=== PATIENT | female | born 1935 | race Caucasian/White ===

== ENCOUNTER 2016-12-14 19:06 | Emergency (ER) | payer MEDICARE, BC ==
[2016-12-14 19:17] VITALS: BP 162/70
--- NOTE | 2016-12-14 19:23 | PCM.PREANE ---
Preanesthetic Assessment - Procedure Proposed Procedure: Dislocated right hip- closed reduction in ED - Anesthesia/Transfusion/Family Hx Anesthesia History: Prior Anesthesia Without Reaction Family History of Anesthesia Reaction: No Transfusion History: No Prior Transfusion(s) Additional History: osteoarthritis - Review of Systems General: No Symptoms Pulmonary: No Symptoms Cardiovascular: Other (HTN) Gastrointestinal: No Symptoms Neurological: No Symptoms Other: Reports: Diabetes (GS 171 at 1510), Thyroid Problems (hypothyroidism) - Physical Assessment NPO Status Date: 12/14/16 NPO Status Time: 17:00 (1130 food, 1700 Cranberry juice) O2 Sat by Pulse Oximetry: 100 Respiratory Rate: 20 Vital Signs: Last Vital Signs Temp 36.6 C 12/14/16 19:11 Pulse 72 12/14/16 19:11 Resp 20 12/14/16 19:11 BP 162/70 H 12/14/16 19:11 Pulse Ox 100 12/14/16 19:11 Height: 1.73 m Weight: 90.718 kg ASA Class: 2 Mental Status: Alert & Oriented x3 Airway Class: Mallampati = 3 Dentition: Reports: Dentures (upper ) Thyro-Mental Finger Breadths: 3 Mouth Opening Finger Breadths: 3 ROM/Head Extension: Full Lungs: Clear to Auscultation, Normal Respiratory Effort Cardiovascular: Regular Rate, Regular Rhythm - Allergies Allergies/Adverse Reactions: Allergies Allergy/AdvReac Type Severity Reaction Status Date / Time No Known Allergies Allergy Verified 12/14/16 19:17 - Blood Blood Available: No Product(s) Available: None - Anesthesia Plan Pre-Op Medication Ordered: None - Acknowledgements Anesthesia Type Planned: MAC Pt an Appropriate Candidate for the Planned Anesthesia: Yes Alternatives and Risks of Anesthesia Discussed w Pt/Guardian: Yes Pt/Guardian Understands and Agrees with Anesthesia Plan: Yes
[2016-12-14] MEDS ORDERED: Metoclopramide 10 MG/2 ML SDV IVPUSH ONE (19:50)
[2016-12-14] MEDS ORDERED: Midazolam 1 MG/ML 2 ML SDV ONE (20:02)
[2016-12-14] MEDS ORDERED: Ketamine 500 mg/10 ML MDV ONE (20:03)
[2016-12-14] MEDS ORDERED: HYDROmorphone 0.5 MG/0.5 ML Syringe IVPUSH ONE (20:36)
--- NOTE | 2016-12-14 20:43 | EDM.PDOC ---
ED HPI GENERAL MEDICAL PROBLEM - General Chief Complaint: Lower Extremity Injury/Pain Stated Complaint: [facility] Time Seen by Provider: 12/14/16 19:17 Source of Information: Reports: Patient, EMS, Family, Provider History Limitations: Reports: No Limitations - History of Present Illness INITIAL COMMENTS - FREE TEXT/NARRATIVE: The patient was at a store in [place] and she tripped and fell on a small rise in the floor. She landed on her knees and she dislocated her hip. She did not hit her head and she has no neck pain. She was seen at the ER in [place] and they did an x-ray and saw her hip was dislocated and they attempted to reduce it. They were unsuccessful. They sent her here for further care. She has a history of diabetes type II, hypothyroidism, and high blood pressure. When she arrived, she was just complaining of right hip pain. 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 (see below) Other Treatments FOOD SERVICE DRIVER: fentanyl Right Hip Pain Score (Numeric/FACES): 8 - Related Data Allergies Allergy/AdvReac Type Severity Reaction Status Date / Time No Known Allergies Allergy Verified 12/14/16 19:17 Past Medical History Cardiovascular History: Reports: High Cholesterol, Hypertension Endocrine/Metabolic History: Reports: Diabetes, Type II - Past Surgical History GI Surgical History: Reports: Cholecystectomy Female Surgical History: Reports: Hysterectomy Social & Family History - Family History Family Medical History: Noncontributory - Tobacco Use Smoking Status *Q: Never Smoker - Caffeine Use Caffeine Use: Reports: None - Recreational Drug Use Recreational Drug Use: No Review of Systems - Review of Systems Review Of Systems: See Below Constitutional: Reports: No Symptoms Eyes: Reports: No Symptoms Ears: Reports: No Symptoms Nose: Reports: No Symptoms Mouth/Throat: Reports: No Symptoms Respiratory: Reports: No Symptoms Cardiovascular: Reports: No Symptoms GI/Abdominal: Reports: No Symptoms Genitourinary: Reports: No Symptoms Musculoskeletal: Reports: Other (Right hip pain) ED EXAM, GENERAL - Physical Exam Exam: See Below Exam Limited By: No Limitations General Appearance: Alert, No Apparent Distress Ears: Normal External Exam Nose: Normal Inspection Head: Atraumatic, Normocephalic Neck: Normal Inspection Respiratory/Chest: No Respiratory Distress, Lungs Clear, Normal Breath Sounds Cardiovascular: Regular Rate, Rhythm, No Edema, No Murmur GI/Abdominal: Soft, Non-Tender, No Organomegaly, No Mass Extremities: Other (Pain upon palpation to the right hip. Her leg is shortend and externaly rotated. She has good sensation and pulses distally. She has an abrasion to her knee. She has an abrasion to her right elbow.) Course - Vital Signs Last Recorded V/S: Last Vital Signs Temp 97.9 F 12/14/16 19:11 Pulse 72 12/14/16 19:11 Resp 20 12/14/16 19:36 BP 162/70 H 12/14/16 19:11 Pulse Ox 100 12/14/16 19:36 - Orders/Labs/Meds Orders: Active Orders 24 hr Category Date Time Status Truong Catheter Insertion [Insert Urinary Catheter] [OM. Care 12/14/16 20:30 Ordered PC] Q24H Urinary Catheter Assessment [RC] ASDIRECTED Care 12/14/16 20:30 Active Hip Min 2V or 3V w Pelvis Rt [CR] Stat Exams 12/14/16 19:17 Taken Meds: Medications Discontinued Medications Generic Name Dose Route Start Last Admin Trade Name Joyce PRN Reason Stop Dose Admin Hydromorphone HCl 0.5 mg 12/14/16 20:36 Dilaudid IVPUSH 12/14/16 20:37 ONETIME ONE Ketamine HCl Confirm 12/14/16 20:03 Ketalar Administered 12/14/16 20:04 Dose 500 mg .ROUTE .STK-MED ONE Metoclopramide HCl 10 mg 12/14/16 19:50 12/14/16 20:30 Reglan IVPUSH 12/14/16 19:51 10 mg ONETIME ONE Administration Midazolam HCl Confirm 12/14/16 20:02 Versed 1 Mg/Ml Administered 12/14/16 20:03 Dose 2 mg .ROUTE .STK-MED ONE - Re-Assessments/Exams Free Text/Narrative Re-Assessment/Exam: 12/14/16 20:43 They did not send the x-rays from [place] so I did x-rays here. She had a fracture dislocation of the right hip. There is 1/3 of the femur broken off and still in the acetabulum. The hip is dislocated superior to the acetabulum. I called Dr Gaspar and he felt she would be better served in [place]. He does not have good hospitalist back up here. I called Dr Bhagat and he would take her but he wanted to talk to Dr Gaspar. They both talked and Dr Bhagat accepted the patient. I gave her some dilaudid 0.5mg IV for pain and she had to urinate so we put a truong cath in. Departure - Departure Time of Disposition: 20:50 Disposition: DC/Tfer to [facility] 02 Condition: Good Clinical Impression: Fall Qualifiers: Encounter type: initial encounter Qualified Code(s): W19.XXXA - Unspecified fall, initial encounter Fracture dislocation of right hip joint Qualifiers: Encounter type: initial encounter Fracture type: closed Qualified Code(s): S72.001A - Fracture of unspecified part of neck of right femur, initial encounter for closed fracture Abrasion of right elbow Qualifiers: Encounter type: initial encounter Qualified Code(s): S50.311A - Abrasion of right elbow, initial encounter Abrasion of right knee Qualifiers: Encounter type: initial encounter Qualified Code(s): S80.211A - Abrasion, right knee, initial encounter - Discharge Information Forms: ED Department Discharge - My Orders Last 24 Hours: My Active Orders 12/14/16 19:17 Hip Min 2V or 3V w Pelvis Rt [CR] Stat 12/14/16 20:30 Truong Catheter Insertion [Insert Urinary Catheter] [OM.PC] Q24H Urinary Catheter Assessment [RC] ASDIRECTED - Assessment/Plan Last 24 Hours: My Active Orders 12/14/16 19:17 Hip Min 2V or 3V w Pelvis Rt [CR] Stat 12/14/16 20:30 Truong Catheter Insertion [Insert Urinary Catheter] [OM.PC] Q24H Urinary Catheter Assessment [RC] ASDIRECTED
--- NOTE | 2016-12-15 07:01 | CR ---
Pelvis and right hip: AP view of the pelvis was obtained as well as AP and lateral views of the right hip. Dislocated right hip is seen. Small bony density is seen superior to the femoral head which is felt compatible with small chip fracture. No additional abnormality is seen other than slight degenerative change within the spine. Impression: 1. Dislocated right hip. 2. Probable small chip fracture as noted above. Diagnostic code #3
== END 2016-12-14 21:30 ==
LOC: JD.ED 19:06
DX: S72.001A Fracture of unspecified part of neck of right femur, initial encounter for closed fracture (principal); S50.311A Abrasion of right elbow, initial encounter; S80.211A Abrasion, right knee, initial encounter; I10 Essential (primary) hypertension; E78.00 Pure hypercholesterolemia, unspecified; E11.9 Type 2 diabetes mellitus without complications; Z90.49 Acquired absence of other specified parts of digestive tract; Z90.710 Acquired absence of both cervix and uterus; W01.0XXA Fall on same level from slipping, tripping and stumbling without subsequent striking against object, initial encounter; Y92.512 Supermarket, store or market as the place of occurrence of the external cause
CPT/HCPCS: 51702; 73502; 81001; 82962; 96374; 96375; 99285; J1170; J2765; 99284; J2250

== ENCOUNTER 2020-04-30 10:32 | Day surgery (SDC) | payer MEDICARE, BC ==
[~2020-04-30 10:32] MED LIST: Lactated Ringers 1,000 ML IV SCH; Lidocaine 1%/Sod Bicarbonate in NS 8.4% 1 ML Syringe IDERM PRN; Sodium Chloride 0.9% 10 ML Syringe FLUSH PRN
[2020-04-30] MEDS ORDERED: Losartan 25 MG Tab PO SCH (11:30)
--- NOTE | 2020-04-30 11:31 | PCM.PREANE ---
Preanesthetic Assessment - Procedure Proposed Procedure: EGD, colonoscopy - Anesthesia/Transfusion/Family Hx Anesthesia History: Prior Anesthesia Without Reaction Family History of Anesthesia Reaction: No Transfusion History: Prior Transfusion Without Reaction Intubation History: Unknown - Review of Systems General: No Symptoms Pulmonary: No Symptoms Cardiovascular: No Symptoms, Other Gastrointestinal: No Symptoms Neurological: No Symptoms Other: Reports: None, Thyroid Problems, Depression - Physical Assessment NPO Status Date: 04/30/20 NPO Status Time: 20:00 Vital Signs: Last Vital Signs Temp 36.6 C 04/30/20 10:35 Pulse 68 04/30/20 10:35 Resp 16 04/30/20 10:35 BP 214/68 H 04/30/20 10:35 Pulse Ox 96 04/30/20 10:35 BPat 1128 181/44 Height: 1.7 m Weight: 81.193 kg ASA Class: 3 Mental Status: Alert & Oriented x3 Thyro-Mental Finger Breadths: 3 Mouth Opening Finger Breadths: 4 ROM/Head Extension: Full Lungs: Clear to Auscultation, Normal Respiratory Effort Cardiovascular: Regular Rate, Regular Rhythm - Lab Values: awaiting labs - Allergies Allergies/Adverse Reactions: Allergies Allergy/AdvReac Type Severity Reaction Status Date / Time No Known Allergies Allergy Verified 04/29/20 11:53 - Blood Blood Available: No - Anesthesia Plan Pre-Op Medication Ordered: None - Acknowledgements Anesthesia Type Planned: MAC Pt an Appropriate Candidate for the Planned Anesthesia: Yes Alternatives and Risks of Anesthesia Discussed w Pt/Guardian: Yes Pt/Guardian Understands and Agrees with Anesthesia Plan: Yes PreAnesthesia Questionnaire HEENT History: Reports: Hard of Hearing Cardiovascular History: Reports: High Cholesterol, Hypertension, Other (See Below) Other Cardiovascular History: bradycardia, irregular heart beat, pulse irregularity, edema Respiratory History: Reports: None Gastrointestinal History: Reports: Other (See Below) Other Gastrointestinal History: dyspepsia Genitourinary History: Reports: Other (See Below) Other Genitourinary History: proteinuria 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: Musculoskeletal History: Reports: Arthritis, Osteoarthritis Neurological History: Reports: Neuropathy, Diabetic Psychiatric History: Reports: Depression Endocrine/Metabolic History: Reports: Diabetes, Type II, Hypothyroidism Hematologic History: Reports: Anemia Immunologic History: Reports: None Oncologic (Cancer) History: Reports: None Dermatologic History: Reports: Other (See Below) Other Dermatologic History: corn, callous, onchomycosis, skin ulcer to left toe - Infectious Disease History Infectious Disease History: Reports: Novel Coronavirus - Past Surgical History Head Surgeries/Procedures: Reports: None HEENT Surgical History: Reports: None Cardiovascular Surgical History: Reports: None Respiratory Surgical History: Reports: None GI Surgical History: Reports: Cholecystectomy Female Surgical History: Reports: Hysterectomy Male Surgical History: Reports: None Endocrine Surgical History: Reports: None Neurological Surgical History: Reports: None Musculoskeletal Surgical History: Reports: Other (See Below) Other Musculoskeletal Surgeries/Procedures:: right hip fracture with repair, left ankle fracture with repair Oncologic Surgical History: Reports: None - SUBSTANCE USE Tobacco Use Status *Q: Never Tobacco User Recreational Drug Use History: No - HOME MEDS Home Medications: Home Meds Acetaminophen [Tylenol Extra Strength] 500 mg PO Q4H PRN 04/29/20 [History] Calcium Carb/Vitamin D3/Vit K1 [Calcium + D Soft Chewable Tab] 1 tab PO DAILY 04/29/20 [History] Cholecalciferol (Vitamin D3) [Vitamin D3] 2,000 unit PO DAILY 04/29/20 [History] Cinnamon Bark [Cinnamon] 500 mg PO BID 04/29/20 [History] Fish Oil/Popejoy-3 Fatty Acids [Fish Oil 1,000 MG] 1 gm PO DAILY 04/29/20 [History] Glimepiride [Amaryl] 1 mg PO DAILY 04/29/20 [History] Levothyroxine Sodium [Levothyroxine] 150 mcg PO DAILY 04/29/20 [History] Losartan [Cozaar] 50 mg PO DAILY 04/29/20 [History] Meloxicam [Mobic] 15 mg PO DAILY 04/29/20 [History] Multivitamin 1 tab PO DAILY 04/29/20 [History] Omeprazole 40 mg PO DAILY 04/29/20 [History] Sertraline [Zoloft] 25 mg PO DAILY 04/29/20 [History] Vitamin B Complex 1 cap PO DAILY 04/29/20 [History] hydroCHLOROthiazide [Hydrochlorothiazide] 12.5 mg PO DAILY 04/29/20 [History] metFORMIN [Glucophage] 500 mg PO BID 04/29/20 [History] - CURRENT (IN HOUSE) MEDS Current Meds: Current Medications Lactated Ringer's (Ringers, Lactated) 1,000 mls @ 125 mls/hr IV ASDIRECTED NANCY Stop: 04/30/20 23:00 Last Admin: 04/30/20 11:05 Dose: 125 mls/hr Documented by: Lidocaine/Sodium Bicarbonate (Buffered Lidocaine 1% In Ns 8.4%) 0.25 ml IDERM ONETIME PRN PRN Reason: Prior to IV Start Stop: 04/30/20 18:00 Last Admin: 04/30/20 11:05 Dose: 0.25 ml Documented by: Losartan Potassium (Cozaar) 50 mg PO DAILY NANCY Sodium Chloride (Saline Flush) 10 ml FLUSH ASDIRECTED PRN PRN Reason: Keep Vein Open Stop: 04/30/20 18:00
[2020-04-30] MEDS ORDERED: Propofol 200 MG/20 ML SDV ONE ×2 (12:03→13:57)
[2020-04-30] MEDS ORDERED: Lidocaine 1% 4 ML ONE (12:04)
--- NOTE | 2020-04-30 13:07 | PCM.OPNOTE ---
- General Post-Op/Procedure Note Date of Surgery/Procedure: 04/30/20 Operative Procedure(s): Colonoscopy Findings: 1. Diverticulosis 2. Cecal polyp x2 3. Hepatic flexure polyp 4. Transverse colon polypx2 5. Splenic flexure polyp 6. Rectal polyp Pre Op Diagnosis: screening for colon cancer Post-Op Diagnosis: same Anesthesia Technique: MAC Primary Surgeon: Salma Allan Anesthesia Provider: Yael Erickson Pathology: 1. Cecal polyp 2. Hepatic flexure polyp 3. Transverse colon polypx2 4. Splenic flexure polyp 5. Rectal polyp Fluid Replacement, Intraop: 1,000 Output, Urine Amount: 0 EBL in mLs: 0 Complications: none apparent Condition: Good
--- NOTE | 2020-04-30 13:09 | PCM.PRNOTE ---
- Free Text/Narrative Note: Operative Report Date of Procedure: April 30, 2020 Pre Op Diagnosis: Anemia Post-Op Diagnosis: Same Operative Procedures: 1. EGD with biopsy 2. Colonoscopy to the cecum Primary Surgeon: Salma Allan MD Anesthesia Provider: Yael Erickson CRNA Anesthesia Technique: MAC IV Fluid Replacement, Intraop: 1000cc crystalloid Output, Urine Amount: 0cc EBL in mLs: 0cc Findings: 1. Irregular GE junction 2. Hiatal hernia 3. Gastritis 4. Gastric ulcer in antrum 5. Antral polyp 6. Submucosal mass in duodenum 7. Cecal polyp 8. Transverse colon polyp Specimens: 1. GE junction biopsies 2. Gastric antrum biopsies 3. Gastric ulcer in antrum biopsies 4. Antral polyp 5. Submucosal mass in duodenum biopsies 6. Cecal polyp 7. Transverse colon polyp Drain/Tubes: None Indication: The patient is an 84-year-old lady who presented to the clinic with findings of anemia and positive FIT testing. The patient reported symptoms of epigastric abdominal pain that had improved with initiation of PPI anti-acid therapy. However, despite initiation of acid suppression, the patient developed severe anemia that required transfusion of 2 blood units. The patient was consented for a diagnostic EGD and colonoscopy. Risks of bleeding, and perforation were discussed, and the patient agreed to the risks and wished to proceed. Description of the procedure: The patient was taken back to the endoscopy suite, and placed in the left lateral decubitus position. A bite block was placed. The patient was sedated w ith MAC anesthesia. The Olympus video endoscope was inserted into the oropharynx and guided under direct vision into the esophagus, stomach, and duodenum. The duodenal bulb and second portion of the duodenum were unremarkable. The gastric antrum was inspected and cold biopsy forceps were used to take tissue samples for H. pylori. There was erythema in the prepyloric gastric tissue with findings of a healing gastric ulcer. Biopsies were taken of the gastric ulcer tissue with a cold biopsy forceps for histology. A 3 mm polyp was noted in the antrum and removed with a cold biopsy forceps. There were findings of erythema in the gastric antrum. The scope was withdrawn to the stomach and retroflexed. There was no increased fluid, food or secretions in the upper gastrointestinal tract. The mucosa in the body of the stomach did appear edematous but was very pale. No erosions or ulcers were noted. The scope was withdrawn to the esophagus. A this point we noted a hiatal hernia. The GE junction was noted to be irregular and was biopsied in 4 quadrants using a cold biopsy forceps. The endoscope was then withdrawn Next, anorectal examination was performed. No lesions, masses or hemorrhoids were noted externally or on palpation. The scope was placed into the rectum and advanced to cecum. Upon reaching the cecum, and the patients cecum was entered. There was mild tortuosity of the colon. The ileocecal valve was well visualized and the appendiceal orifice identified. At this point, the scope was slowly withdrawn, paying attention to the mucosa. The patient had adequate bowel prep, 85% of the mucosa was visible after washing and suctioning but visibility was most poor in the ascending colon. A 2mm cecal polyp was noted and removed using a cold biopsy forceps. A 3 mm flat transverse colon polyp was removed using cold biopsy forceps. In the rectum, scope was retroflexed and some hemorrhoidal tissue was noted. The scope was placed back in the lumen and excess air was aspirated. The scope was removed. The patient tolerated the procedure very well. Complications: None apparent Condition: The patient was transported to PACU in stable condition. Salma Allan MD General Surgery
[2020-04-30] MEDS ORDERED: Labetalol 100 MG/20 ML MDV ONE (13:27)
[2020-04-30] MEDS ORDERED: Lactated Ringers 1,000 ML ONE (13:57)
--- NOTE | 2020-04-30 14:21 | PCM.OPNOTE ---
- General Post-Op/Procedure Note Date of Surgery/Procedure: 04/30/20 Operative Procedure(s): EGD and colonoscopy Findings: 1. Irregular GE jucntion 2. Hiatal hernia 3. Gastritis 4. Gastric ulcer in antrum 5. Antral polyp 6. Submucosal mass in duodenum 7. Cecal polyp 8. Transverse colon polyp Pre Op Diagnosis: Anemia Post-Op Diagnosis: same Anesthesia Technique: MAC Primary Surgeon: Salma Allan Anesthesia Provider: Yael Erickson Occ Therapist: Bhaskar Tenorio Pathology: 1. GE junction biopsies 2. Gastric antrum biopsies 3. Gastric ulcer in antrum biopsies 4. Antral polyp 5. Submucosal mass in duodenum biopsies 6. Cecal polyp 7. Transverse colon polyp Fluid Replacement, Intraop: 1,000 Output, Urine Amount: 0 EBL in mLs: 0 Complications: none apparent Condition: Good Free Text/Narrative:: Intake & Output 04/29/20 04/30/20 04/30/20 22:59 06:59 14:59 Intake Total 1000 Output Total 0 Balance 1000
--- NOTE | 2020-04-30 14:28 | PCM48HPAN ---
Post Anesthesia Note - EVALUATION WITHIN 48HRS OF ANESTHETIC Vital Signs in Normal Range: Yes Patient Participated in Evaluation: Yes Respiratory Function Stable: Yes Airway Patent: Yes Cardiovascular Function Stable: Yes Hydration Status Stable: Yes Pain Control Satisfactory: Yes Nausea and Vomiting Control Satisfactory: Yes Mental Status Recovered: Yes Vital Signs: Last Vital Signs Temp 97.8 F 04/30/20 10:35 Pulse 68 04/30/20 10:35 Resp 16 04/30/20 10:35 BP 181/57 H 04/30/20 11:38 Pulse Ox 96 04/30/20 10:35 1421 97.4 16 70 92% 166/71
[2020-04-30 15:25] VITALS: BP 178/68; PULSE 75
== END 2020-04-30 15:28 | disposition home or self-care (01) ==
LOC: JD.SDS 10:32
PROVIDERS: ATTEND Surgery
DX: D12.0 Benign neoplasm of cecum (principal); D64.9 Anemia, unspecified; U07.1 COVID-19; K29.50 Unspecified chronic gastritis without bleeding; K44.9 Diaphragmatic hernia without obstruction or gangrene; K31.89 Other diseases of stomach and duodenum; K25.9 Gastric ulcer, unspecified as acute or chronic, without hemorrhage or perforation; E03.9 Hypothyroidism, unspecified; I10 Essential (primary) hypertension; F32.9 Major depressive disorder, single episode, unspecified; E11.40 Type 2 diabetes mellitus with diabetic neuropathy, unspecified; Z98.890 Other specified postprocedural states; Z79.899 Other long term (current) drug therapy; Z79.84 Long term (current) use of oral hypoglycemic drugs
CPT/HCPCS: 36415; 43239; 45380; 85025; 93005; A9270; J2001; J2704; J3490; J7120; 00813

== ENCOUNTER 2020-09-03 07:09 | Day surgery (SDC) | payer MEDICARE, BC ==
[2020-09-03] MEDS ORDERED: fentaNYL 100 MCG/2 ML SDV ONE (07:13)
[2020-09-03] MEDS ORDERED: Lidocaine 1% 4 ML ONE (07:13)
[2020-09-03] MEDS ORDERED: Propofol 200 MG/20 ML SDV ONE (07:13)
--- NOTE | 2020-09-03 07:38 | PCM.PREANE ---
Preanesthetic Assessment - Procedure Proposed Procedure: EGD - Anesthesia/Transfusion/Family Hx Anesthesia History: Prior Anesthesia Without Reaction Family History of Anesthesia Reaction: No Transfusion History: Prior Transfusion Without Reaction Intubation History: Unknown - Review of Systems General: No Symptoms Pulmonary: No Symptoms Cardiovascular: No Symptoms (HTN, history of irregular hr), Palpitations (anxiety), Dyspnea on Exertion Gastrointestinal: No Symptoms (GERD-improved/history of gastric ulcer) Neurological: Numbness (neuropathy-primarily in the feet and also in hands) Other: Reports: Easy Bruising, Diabetes (BS =92 @ 0530), Thyroid Problems (hypothyroid), Depression, Anxiety - Physical Assessment NPO Status Date: 09/02/20 NPO Status Time: 22:30 Vital Signs: HR: 67 Sat: 94% Temp: 97.6 B/P: 185/57 Resp: 16 Height: 1.73 m Weight: 85.275 kg ASA Class: 3 Mental Status: Alert & Oriented x3 Airway Class: Mallampati = 2 Dentition: Reports: Normal Dentition, Dentures (upper), Caries Thyro-Mental Finger Breadths: 3 Mouth Opening Finger Breadths: 3 ROM/Head Extension: Full Lungs: Clear to Auscultation, Normal Respiratory Effort Cardiovascular: Regular Rate, Regular Rhythm, No Murmurs - Imaging/EKG Impressions: EKG: SR rate = 75, abnormal R wave progression. - Allergies Allergies/Adverse Reactions: Allergies Allergy/AdvReac Type Severity Reaction Status Date / Time No Known Allergies Allergy Verified 09/02/20 15:34 - Anesthesia Plan Pre-Op Medication Ordered: None - Acknowledgements Anesthesia Type Planned: MAC Pt an Appropriate Candidate for the Planned Anesthesia: Yes Alternatives and Risks of Anesthesia Discussed w Pt/Guardian: Yes Pt/Guardian Understands and Agrees with Anesthesia Plan: Yes PreAnesthesia Questionnaire HEENT History: Reports: Hard of Hearing, Impaired Vision Other HEENT History: wears glasses, has upper denture Cardiovascular History: Reports: High Cholesterol, Hypertension, Other (See Below) Other Cardiovascular History: bradycardia, irregular heart beat, pulse irregularity, edema Respiratory History: Reports: None Gastrointestinal History: Reports: Other (See Below) Other Gastrointestinal History: dyspepsia Genitourinary History: Reports: Other (See Below) Other Genitourinary History: proteinuria 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: Musculoskeletal History: Reports: Arthritis, Osteoarthritis Neurological History: Reports: Neuropathy, Diabetic Psychiatric History: Reports: Depression Endocrine/Metabolic History: Reports: Diabetes, Type II, Hypothyroidism Hematologic History: Reports: Anemia Immunologic History: Reports: None Oncologic (Cancer) History: Reports: None Dermatologic History: Reports: Other (See Below) Other Dermatologic History: corn, callous, onchomycosis, skin ulcer to left toe - Infectious Disease History Infectious Disease History: Reports: None - Past Surgical History Head Surgeries/Procedures: Reports: None HEENT Surgical History: Reports: None Cardiovascular Surgical History: Reports: None Respiratory Surgical History: Reports: None GI Surgical History: Reports: Cholecystectomy, Colonoscopy, EGD Female Surgical History: Reports: Hysterectomy Male Surgical History: Reports: None Endocrine Surgical History: Reports: None Neurological Surgical History: Reports: None Musculoskeletal Surgical History: Reports: Other (See Below) Other Musculoskeletal Surgeries/Procedures:: right hip fracture with repair, le ft ankle fracture with repair Oncologic Surgical History: Reports: None Dermatological Surgical History: Reports: None - SUBSTANCE USE Tobacco Use Status *Q: Never Tobacco User Recreational Drug Use History: No - HOME MEDS Home Medications: Home Meds Acetaminophen [Tylenol Extra Strength] 500 mg PO Q4H PRN 04/29/20 [History] Calcium Carb/Vitamin D3/Vit K1 [Calcium + D Soft Chewable Tab] 1 tab PO DAILY 04/29/20 [History] Cholecalciferol (Vitamin D3) [Vitamin D3] 2,000 unit PO DAILY 04/29/20 [History] Cinnamon Bark [Cinnamon] 500 mg PO BID 04/29/20 [History] Fish Oil/[place]-3 Fatty Acids [Fish Oil 1,000 MG] 1 gm PO BID 04/29/20 [History] Glimepiride [Amaryl] 1 mg PO DAILY 04/29/20 [History] Losartan [Cozaar] 50 mg PO DAILY 04/29/20 [History] Multivitamin 1 tab PO DAILY 04/29/20 [History] Omeprazole 40 mg PO DAILY 04/29/20 [History] Sertraline [Zoloft] 25 mg PO DAILY 04/29/20 [History] Vitamin B Complex 1 cap PO DAILY 04/29/20 [History] hydroCHLOROthiazide [Hydrochlorothiazide] 12.5 mg PO DAILY 04/29/20 [History] metFORMIN [Glucophage] 500 mg PO BID 04/29/20 [History] Levothyroxine Sodium [Levothyroxine] 150 mcg PO DAILY 09/02/20 [History] - CURRENT (IN HOUSE) MEDS Current Meds: Current Medications Lactated Ringer's (Ringers, Lactated) 1,000 mls @ 125 mls/hr IV ASDIRECTED NANCY Stop: 09/03/20 23:00 Lidocaine/Sodium Bicarbonate (Lidocaine 1%/Sod Bicarbonate In Ns 8.4% 1 Ml Syringe) 0.25 ml IDERM ONETIME PRN PRN Reason: Prior to IV Start Stop: 09/03/20 18:00 Sodium Chloride (Sodium Chloride 0.9% 10 Ml Syringe) 10 ml FLUSH ASDIRECTED PRN PRN Reason: Keep Vein Open Stop: 09/03/20 18:00 Discontinued Medications Fentanyl (Fentanyl 100 Mcg/2 Ml Sdv) Confirm Administered Dose 100 mcg .ROUTE .STK-MED ONE Stop: 09/03/20 07:14 Lidocaine HCl (Xylocaine-Mpf 1%) Confirm Administered Dose 4 mls @ as directed .ROUTE .STK-MED ONE Stop: 09/03/20 07:14 Propofol (Propofol 200 Mg/20 Ml Sdv) Confirm Administered Dose 200 mg .ROUTE .STK-MED ONE Stop: 09/03/20 07:14
--- NOTE | 2020-09-03 08:42 | PCM.OPNOTE ---
- General Post-Op/Procedure Note Date of Surgery/Procedure: 09/03/20 Findings: 1. Bile reflux 2. Healed gastric ulcer 3. Gastritis 4. Irregular GE junction Pre Op Diagnosis: History of gastic ulcer Post-Op Diagnosis: same Anesthesia Technique: ELISHA Primary Surgeon: Salma Allan Anesthesia Provider: Helga Pride Pathology: 1. Gastric antrum biopsies 2. Z-line biopsies Fluid Replacement, Intraop: 500 Output, Urine Amount: 0 EBL in mLs: 0 Complications: none apparent Condition: Good
--- NOTE | 2020-09-03 08:47 | PCM.PRNOTE ---
- Free Text/Narrative Note: Operative Report Date of procedure: September 03, 2020 Preoperative diagnosis: History of gastric ulcer Postoperative diagnosis: same Surgeon: Salma Allan M.D. Procedure: EGD Anesthesia: MAC Pottery Decoration Designer: Helga Pride CRNA IV fluids: 500mL Estimated blood loss: 0 mL Findings: 1. Bile reflux 2. Healed gastric ulcer 3. Gastritis 4. Irregular GE junction Specimens: 1. Gastric antrum biopsies 2. Z-line biopsies Indication: The patient is an 85 -year-old lady who presented with history of melena and anemia, and previously had EGD. The patient was consented for an EGD for evaluation fo gastric ulcer healing. Risk of perforation was discussed. The patient's consent was obtained Description of the procedure: The patient was taken to the endoscopy suite and placed on hemodynamic monitoring. The nurse clarifying plant operator induced MAC anesthesia. A bite block was placed. The patient was positioned in the left lateral decubitus position. A timeout was performed. The endoscope was gently placed into the mouth to the back of the pharynx and introduced into the esophagus. The scope was gently advanced under direct visualization down to the level of the lower esophageal sphincter. The stomach was then entered. Normal rugal folds were noted. The scope was advanced into the antrum. We noted erythema consistent with gastritis and scarring in the antrum consistent with a healed ulcer. The pylorus was then entered and the first and second portion of the duodenum was inspected. There were no ulcerations in the duodenum. The scope was withdrawn into the antrum and biopsies were taken in the antrum and of the scar tissue using a cold biopsy forceps. The scope was then retroflexed in the cardia and fundus were investigated. There was possible hiatal hernia noted of the fundus. No other abnormalities were noted. The scope was then withdrawn while inspecting the esophagus. The Z-line was irregular and biopsied with a cold biopsy forceps in four quadrants. There was no additional findings of esophagitis. The procedure was terminated. the patient tolerated the procedure well without any evidence of complications. Salma Allan MD General Surgery
--- NOTE | 2020-09-03 08:57 | PCM48HPAN ---
Post Anesthesia Note - EVALUATION WITHIN 48HRS OF ANESTHETIC Vital Signs in Normal Range: Yes Patient Participated in Evaluation: Yes Respiratory Function Stable: Yes Airway Patent: Yes Cardiovascular Function Stable: Yes Hydration Status Stable: Yes Pain Control Satisfactory: Yes Nausea and Vomiting Control Satisfactory: Yes Mental Status Recovered: Yes Vital Signs: Last Vital Signs Temp 36.4 C 09/03/20 07:15 Pulse 67 09/03/20 07:15 Resp 16 09/03/20 07:15 BP 185/57 H 09/03/20 07:15 Pulse Ox 94 L 09/03/20 07:15
[2020-09-03 11:09] VITALS: BP 162/50; PULSE 74
== END 2020-09-03 09:30 | disposition home or self-care (01) ==
LOC: JD.SDS 07:09
PROVIDERS: ATTEND Surgery
DX: K29.50 Unspecified chronic gastritis without bleeding (principal); K20.90 Esophagitis, unspecified without bleeding; K22.8 Other specified diseases of esophagus; D64.9 Anemia, unspecified; E03.9 Hypothyroidism, unspecified; I10 Essential (primary) hypertension; E11.9 Type 2 diabetes mellitus without complications; Z79.899 Other long term (current) drug therapy; Z87.19 Personal history of other diseases of the digestive system
CPT/HCPCS: 43239; J2704; J3010; J7120; 00731

== ENCOUNTER 2022-06-14 09:15 | Emergency (ER) | payer MEDICARE, BC ==
[2022-06-14 09:30] VITALS: PULSE 89
[2022-06-14] MEDS ORDERED: Ondansetron 4 MG/2 ML SDV IVPUSH ONE ×2 (10:56→17:26)
[2022-06-14] MEDS ORDERED: Morphine 4 MG/ML Syringe IVPUSH ONE ×2 (10:56→13:46)
[2022-06-14 11:26] LABS: CORONAVIRUS COVID-19 NAA NEGATIVE (NEGATIVE)
[2022-06-14] MEDS ORDERED: Iopamidol 755 Mg/ML 100 ML Bottle IVPUSH ONE (13:56)
[2022-06-14] MEDS ORDERED: Sodium Chloride 0.9% 10 ML Syringe FLUSH PRN (13:56)
[2022-06-14] MEDS ORDERED: Sodium Chloride 0.9% 100 ML IV SCH (14:00)
[2022-06-14] MEDS ORDERED: Labetalol 100 MG/20 ML MDV IVPUSH ONE (17:16)
[2022-06-14] MEDS ORDERED: Heparin Sodium 5,000 Units/ML Vial IVPUSH ONE (17:28)
[2022-06-14] MEDS ORDERED: Heparin Sodium/D5W 25,000 UNITS/500 ML BAG IV SCH (17:30)
[2022-06-14] MEDS ORDERED: Morphine 2 MG/ML SYRINGE IVPUSH ONE (18:02)
[2022-06-14 19:31] VITALS: BP 139/59
== END 2022-06-14 18:00 ==
LOC: JD.ED 09:15
DX: R55 Syncope and collapse (principal); S60.211A Contusion of right wrist, initial encounter; R77.8 Other specified abnormalities of plasma proteins; E11.40 Type 2 diabetes mellitus with diabetic neuropathy, unspecified; E03.9 Hypothyroidism, unspecified; E78.00 Pure hypercholesterolemia, unspecified; I10 Essential (primary) hypertension; Z79.84 Long term (current) use of oral hypoglycemic drugs; Z79.899 Other long term (current) drug therapy; Z20.822 Contact with and (suspected) exposure to COVID-19; W18.09XA Striking against other object with subsequent fall, initial encounter
CPT/HCPCS: 0241U; 36415; 70450; 71260; 73030; 73080; 73110; 74177; 80053; 81001; 84484; 85025; 85610; 85730; 93005; 96365; 96375; 96376; 99285; J1644; J2270; J2405; J3490; Q9967; 93010